=== PATIENT | male | born 1965 | race Hispanic/Latino ===

== ENCOUNTER 2016-11-18 15:09 | Emergency (ER) | payer SELFPAY ==
[~2016-11-18] VITALS: Ht 167.6 cm; Wt 72.7 kg
[2016-11-18 15:45] VITALS: BP 122/81; PULSE 100; RESP 18; O2SAT 97
[2016-11-18 16:23] LABS: BASOPHILS % (AUTO) 0.3 % (0-3); EOSINOPHILS % (AUTO) 0 % (0-5); MONOCYTES % (AUTO) 13.8 % (4-12); Mean Corpuscular Hemoglobin 30.9 pg (27.0-35.0); NEUTROPHILS % (AUTO) 73.9 % (40-74); Platelet Count 354 bil/L (150-400)
[2016-11-18 17:38] VITALS: BP 127/70; PULSE 96; O2SAT 95
--- NOTE | 2016-11-18 17:41 | DRSVH ---
PROCEDURE: X-RAY CHEST ONE VIEW, PORTABLE ([id number]) INDICATIONS: 51 year-old male with left chest pain and fevers. TECHNIQUE: One view of the chest was acquired. COMPARISON: None. FINDINGS: Surgical changes and devices: None. Lungs and pleura: No pleural effusions or pneumothorax. Bilateral upper lung air space opacities are present, along with right upper lung volume loss with superior hilar retraction. Mediastinum: Mediastinal contours appear normal. Heart size is normal. Bones and chest wall: No suspicious bony lesions. Overlying soft tissues appear unremarkable. IMPRESSION: Bilateral airspace opacities with volume loss would be consistent with remote tuberculous disease of indeterminate activity. Superimposed acute pneumonia cannot be excluded in the absence of any compari son films. Dictated by: Kaveh Hernandez M.D. on 11/18/2016 at 17:39 Approved by: Kaveh Hernandez M.D. on 11/18/2016 at 17:39
[2016-11-18 20:12] VITALS: BP 123/86; PULSE 93; O2SAT 97
[2016-11-18] MEDS ORDERED: AZIT500T5 PO (21:20)
--- NOTE | 2016-11-18 21:22 | ED.REPORT ---
[id number] Illness Date of Service Nov 18, 2016 ED Provider: Janneth Cespedes MD History of Present Illness: Mr. Yossi Whiting is a 51 year old primary danish speaking gentleman with a PMH significant for treated TB roughly 5 years ago in [facility] who presents to [facility] emergency department with 2 week history of hematochezia and 8 day history of cough, fever, and body aches. He describes large volume bloody and painless stools for 2 weeks. He denies dizziness, headache, chest pressure, shortness of breath, abdominal pain, nausea, and vomiting, weight loss. He reports productive green sputum, diaphoresis, painful cough, body aches, hematochezia, general malaise. He immig[place] to the from [facility] [place]. He does not see a primary care physician and is not taking medications. After a lengthy discussion his son mentioned being treated in the hospital for "flu like illness" 2 weeks ago, during which there was concern for TB due to "lumps on lungs." He is to be followed up in 6 weeks. The patient had TB roughly 5 years ago and was told that after treatment he should be cured. Nursing Notes Stated Complaint: COUGH/TIGHT CHEST/RECTAL BLEEDING Chief Complaint: General Complaint Nursing Notes Reviewed: Yes Allergies: Coded Allergies: No Known Allergies (Unverified , 11/18/16) Scheduled Azithromycin (Azithromycin) 500 Mg Tablet 250 MG PO DAILY General Time Seen by Provider: 19:10 Chief Complaint Other (Hematochezia. ) Onset Occurred: More than a week ago... (2 weeks) Review of Systems Review of Systems Note: A comprehensive review of systems was conducted with the patient and found to be negative except as above in the History of Present Illness. Complete sys rev & neg: except as marked. Physical Exam Physical Exam Notes: General: Middle aged gentleman lying in bed in no acute distress, well-developed, well-nourished, appropriately interactive HEENT: Normocephalic, atraumatic. External ears without defect. Pupils equal, round, and reactive to light and accommodation. Anicteric sclerae, moist conjunctivae, and no lid lag. Oropharynx free of erythema and cobble stoning with moist mucosa. Neck: Supple with full range of motion. No jugular venous distension. No bruits. No lymphadenopathy or thyromegaly. Cardiovascular: Regular rate and rhythm with no murmurs, rubs, or gallops appreciated Pulmonary: Mildly decreased air movement with end-expiratory wheezes diffusely, without crackles or rhonchi. Normal respiratory effort with no use of accessory muscles on RA. Abdomen: Bowel tones present. Soft, nontender, nondistended. No hepatosplenomegaly or masses appreciated. Extremities: No clubbing, cyanosis, edema, or lymphadenopathy appreciated. Skin: Normal temperature, turgor, and texture; no rash, ulcers, or subcutaneous nodules appreciated. Neurological: Cranial nerves grossly intact. Normal muscle strength, tone, and bulk. Reflexes, coordination, and sensory function within normal limits. No known gait impairment. Psychiatric: Normal mood and affect. Alert and oriented to person, place, and time. Initial Vital Signs Vital Signs (First) Date Time Temp Pulse Resp B/P Pulse Ox O2 Delivery O2 Flow Rate FiO2 11/18/16 15:45 38.8 100 18 122/81 97 Room Air Initial VS: Reviewed Interpretation & Diagnostics Interpretation & Diagnostics: EKG - Normal sinus rhythm, Normal axis, No ST elevations or depressions. Lab Results Interpretation Result Diagram: 11/18/16 1615 11/18/16 1615 Test 11/18/16 16:15 White Blood Count 7.2th/mm3 (3.8-10.1) Red Blood Count 4.63mil/mm3 (4.40-5.80) Hemoglobin 14.3g/dL (13.8-17.2) Hematocrit 42.6% (41.0-50.0) Mean Corpuscular Volume 92.0fL (81-100) Mean Corpuscular Hemoglobin 30.9pg (27.0-35.0) Mean Corpuscular Hemoglobin Concent 33.6% (32.0-37.0) Red Cell Distribution Width 12.7% (12.3-15.4) Platelet Count 354bil/L (150-400) Neutrophils (%) (Auto) 73.9% (40-74) Lymphocytes (%) (Auto) 11.6% (14-46) Monocytes (%) (Auto) 13.8% (4-12) Eosinophils (%) (Auto) 0% (0-5) Basophils (%) (Auto) 0.3% (0-3) Sodium Level 134mEq/L (134-144) Potassium Level 4.2mEq/L (3.5-5.2) Chloride Level 92mEq/L (97-108) Carbon Dioxide Level 26mmol/L (18-29) Blood Urea Nitrogen 15mg/dL (6-24) Creatinine 0.75mg/dL (0.76-1.27) Estimat Glomerular Filtration Rate 117mL/min (>59) Glucose Level 135mg/dL (60-99) Calcium Level 9.0mg/dL (8.5-10.1) Total Bilirubin 0.5mg/dL (0.0-1.2) Aspartate Amino Transf (AST/SGOT) 24U/L (0-50) Alanine Aminotransferase (ALT/SGPT) 25U/L (0-44) Alkaline Phosphatase 95U/L (25-150) Troponin T < 0.010ug/L (0.0-0.011) Total Protein 7.7g/dL (6.4-8.4) Albumin 4.0g/dL (3.4-5.0) Hold López Top Tube Received (Received) Procedures Procedure Notes: Digital rectal exam - Normal external sphincter tone, nontender, no nodules, masses or hemorrhoids present. Prostate gland normal size, nontender, smooth to palpation. No nodules or masses noted internally. Re-Evaluation & [facility] Med Decision/Clinical Course 1. Acute Post Influenza A pneumonia, present on admission. Active. - Rapid flu positive for influenza A. - 5 day course of Azithromycin PO 250 mg for 4 days. (Recieved 1 dose 500mg in hospital) Re-Evaluation/Progress : Time of Eval: 21:00 Patient Discharge & Departure Shift Change Sign-Out Discussed Complaint(s): Yes Laboratory Evaluation: Lab evaluation discussed Imaging Studies: Imaging discussed Impression: Primary Impression: Pneumonia and influenza Disposition: Home Discharge Condition All VS Reviewed: Yes Condition: Stable Patient Instructions: Bacterial Pneumonia (DC), Influenza (DC) Additional Instructions: Here at the [facility] emergency department we swabbed your nose and you were positive for influenza A. You also have signs and symptoms of pneumonia, which is fluid in the lungs and can be infected with bacteria for which we will treat you with a 5 day course antibiotics. Laboratory findings and vital signs stable here at the hospital. Don't hesitate to call your primary care physician or emergency services if you have increased shortness of breath, high spiking fevers, increased nausea and vomiting, dizziness, syncope, persistent large volume bloody stools. It is important to follow up with a primary care physician. The [facility] residency clinic is a good option. 1. Acute Post Influenza A pneumonia infection, present on admission. Active. - Febrile 39.1, tachycardia 100 BPM. CXR showed possible pneumonia. - 5 day course of azithromycin. Referrals: NOPCP (PCP) 1 Week [facility] Residency Clinic Attending Statement Pt seen and examined with Dr Carlson Agree with assessment and plan as above AMRITA CARLSON DO Nov 18, 2016 20:05 Janneth Cespedes MD Nov 20, 2016 11:42
[2016-11-18 21:34] VITALS: BP 117/79; PULSE 100; RESP 20; O2SAT 96
== END 2016-11-18 21:35 | disposition home or self-care (01) ==
LOC: SED 15:09
DX: J11.00 Influenza due to unidentified influenza virus with unspecified type of pneumonia (principal); K92.1 Melena; R50.9 Fever, unspecified